=== PATIENT | male | born 1990 | race Caucasian/White ===

== ENCOUNTER → 2016-04-16 | Outpatient (CLI) | payer OTHER ==
[~2016-04-16] MED LIST: NORCO 325 MG-51 TAB PO; ULTRAM 50MG TAB50 MG PO
== END ==
LOC: COL.RAD 14:42
DX: M23.251 Derangement of posterior horn of lateral meniscus due to old tear or injury, right knee (principal); M23.611 Other spontaneous disruption of anterior cruciate ligament of right knee; M25.561 Pain in right knee

== ENCOUNTER 2016-10-13 10:05 | Emergency (ER) | payer OTHER ==
[~2016-10-13] VITALS: Ht 193 cm; Wt 83.2 kg
[2016-10-13 10:13] VITALS: BP 131/66; TEMP 99
[2016-10-13] MEDS ORDERED: ULTRAM 50MG TAB50 MG PO (10:14)
[2016-10-13] MEDS ORDERED: NORCO 325 MG-51 TAB PO (11:47)
[2016-10-13 12:00] VITALS: PULSE 74
== END 2016-10-13 12:00 | disposition home or self-care (01) ==
LOC: COL.ER 10:05
DX: S83.91XA Sprain of unspecified site of right knee, initial encounter (principal); F12.10 Cannabis abuse, uncomplicated; Z98.890 Other specified postprocedural states; X50.0XXA Overexertion from strenuous movement or load, initial encounter; Y93.74 Activity, frisbee; Y92.39 Other specified sports and athletic area as the place of occurrence of the external cause
CPT/HCPCS: L1830